=== PATIENT | female | born 1965 | race Caucasian/White ===

== ENCOUNTER 2021-04-16 17:05 | Inpatient (IN) ==
[2021-04-16] MEDS ORDERED: IOPAMIDOL 100 ML BOTTLE IV ONE (17:06)
[2021-04-16] MEDS ORDERED: DEXAMETHASONE 10 MG/ML VIAL IV ONE (17:21)
[2021-04-16] MEDS ORDERED: ALBUTEROL SULFATE 2.5 MG/3 ML NEBULIZER NEB ONE (17:21)
[2021-04-16] MEDS ORDERED: 0.9 % SODIUM CHLORIDE 1,000 ML IV ONE ×2 (17:21→18:03)
[2021-04-16] MEDS ORDERED: ONDANSETRON 4 MG/2 ML VIAL IV ONE (17:23)
--- NOTE | 2021-04-16 17:27 | Emergency Department Note ---
SOB HPI General Chief Complaint: Shortness of Breath/Dyspnea Stated Complaint: shortness of breath Time Seen by Provider: 04/16/21 17:12 Source: patient Mode of arrival: ambulatory Limitations: no limitations History of Present Illness HPI Narrative: The patient presents short of breath and hypoxic. She was diagnosed with Covid 11 days ago. She states that 5 days ago she started to feel worse. She has a productive cough and feels short of breath. She has a general malaise. She has had numerous episodes of vomiting and diarrhea. She denies chest pain. She has had a mild throbbing headache. She denies sore throat. She denies urinary issues. She denies any known cardiopulmonary problems. Related Data Previous Rx's Medication Instructions Recorded promethazine 25 mg tablet 25 mg PO Q6H PRN #30 tab 03/14/18 escitalopram oxalate 10 mg tablet 15 mg PO QHS 90 Days #135 tab 12/12/20 hydrocodone 10 mg-acetaminophen 1 tab PO Q6H PRN #25 tab 03/24/21 325 mg tablet ondansetron 4 mg PO Q6H PRN #12 tab 04/16/21 Allergies Allergy/AdvReac Type Severity Reaction Status Date / Time ketorolac [From Toradol] Allergy Unknown Unknown Verified 08/14/20 09:14 Penicillins Allergy Unknown Unknown Verified 08/14/20 09:14 codeine AdvReac Itching Verified 08/14/20 09:14 Review of Systems ROS ROS Narrative: Narrative: All systems ED: reviewed and negative except as stated. PFSH Narrative Patient History Narrative: Narrative: Medical/Surgical/Family History All Active Problems (Updated 04/16/21 @ 18:59 by Randy Mendosa MD) Pneumonia due to COVID-19 virus (Acute) Hypoxia (Acute) Hyperparathyroidism (Acute) Fatigue (Acute) Depression (Acute) Annual physical exam (Acute) Exposure to COVID-19 virus (Acute) History of colonoscopy (Acute 04/24/13) History of tubal ligation (Acute) Migraine (Acute) Insomnia (Acute 12/12/14) Chronic fatigue syndrome (Acute) Medical History (Updated 04/16/21 @ 18:59 by Randy Mendosa MD) Annual physical exam Chronic fatigue syndrome CMV-EB Depression Fatigue Hyperparathyroidism Insomnia (12/12/14) Migraine Surgical History (Updated 11/11/16 @ 14:23 by [employer] [place]) History of colonoscopy (04/24/13) Hyperplastic Polyp History of tubal ligation Family History (Updated 01/01/15 @ 13:54 by Anabella Paniagua) Aunt Malignant neoplasm of breast Grandmother(maternal) Malignant neoplasm of breast Social History Smoking Status: Former smoker Alcohol Intake Frequency: does not drink Substance Use: does not use Exam Narrative Narrative: Narrative: General Limitations: no limitations General appearance: Present alert and in no apparent distress (The patient can speak in multiple word sentences) Head Head: Present atraumatic and normal inspection Eye Eye: Present normal appearance ENT ENT: Present mucous membranes dry Neck Neck: Present normal inspection, full ROM and trachea midline; Absent meningismus Chest Chest: Present normal inspection and symmetric chest wall rise Respiratory Respiratory: Present wheezes (Mild expiratory); Absent normal lung sounds bilaterally, respiratory distress and accessory muscle use Cardiovascular Cardiovascular: Present regular rate, normal rhythm and other (Bilateral radial 2+) Adbominal Abdominal: Present soft; Absent distention and tenderness Extremities Extremities: Present normal inspection and full ROM; Absent pedal edema and calf tenderness Back Back: Present full ROM Neurological Neurological: Present alert and oriented X3 Psychiatric Psychiatric: Present normal affect and normal mood Skin Skin: Present warm (WNL) and dry Course Reevaluation(s) Reevaluation #1: The patient's work-up is reviewed. CT shows Covid pneumonia but no PE. Patient does show a prerenal azotemia. She is getting 2 L of fluid here. Her troponin is negative. Given the lack of beds in this facility and the surrounding facilities, I think a discharge with home oxygen would be the best option. Plan to see if this is a viable option for this evening. Time: 19:14 Reevaluation #2: We have been able to arrange for home oxygen for this patient. Time: 20:23 Reevaluation #3: Unfortunately, due to the time of day, the home oxygen will not be available for the patient until tomorrow morning. She will remain in the emergency department overnight on our oxygen until we can ensure that she has oxygen at home. Time: 22:52 Additional Reevaluation(s): 0110 -the patient became more hypoxic after getting up and using the restroom. She required a prolonged period of time on higher flow oxygen to regain her saturations. Based on this, we are going to try to find an inpatient bed for this patient. 0320 -we were informed by our manager warehouse that we would have a bed available come the morning after discharges. Plan at this point since there are no available beds in the area, is to keep the patient here in the ED and signed them over to dayshift at which point once a bed becomes available, they can consult our hospitalist. Consultations Consultation #1: Reportedly [facility] had a bed and so I spoke to their hospitalist, Dr. Payton Hull. She told me that she had already had 6 admissions this evening and was too busy to accept the patient. She declined to accept. Time: 03:00 Vital Signs Vital signs: Vital Signs Temperature 98.9 F 04/16/21 17:05 Pulse Rate 99 H 04/16/21 17:05 Respiratory Rate 25 H 04/16/21 17:05 Blood Pressure 111/74 04/16/21 17:05 Pulse Oximetry (%) 83 L 04/16/21 17:05 Temperature 97.8 F 04/17/21 06:11 Pulse Rate 92 H 04/17/21 06:11 Respiratory Rate 23 H 04/17/21 06:11 Blood Pressure 150/97 04/17/21 05:30 Pulse Oximetry (%) 90 04/17/21 06:11 [facility] MDM Narrative Medical decision making narrative: Narrative: The patient presents hypoxic with Covid. She does fine with the supplemental oxygen. Plan to give albuterol and dexamethasone. We will obtain a CT to rule out pulmonary embolism. We will also obtain other appropriate labs. I have low suspicion for ACS. If work-up is otherwise negative, it may be possible that we can arrange home O2 for this patient. If not, she will need to be either admitted or transferred depending on bed availability. Lab Data Result diagrams: 04/16/21 17:54 04/16/21 17:54 Labs: Lab Results 04/16/21 04/16/21 04/16/21 Range/Units 17:54 17:54 17:54 WBC 7.7 (4.5-11.0) K/mcL RBC 4.16 (3.59-5.38) M/mcL Hgb 11.4 (11.2-15.7) g/dL Hct 36.2 (34.1-44.9) % MCV 87.0 (80.0-100.0) fL MCH 27.4 (26.0-34.0) pg MCHC 31.5 (31.0-36.0) g/dL RDW 16.4 H (11.5-14.5) % Plt Count 218 (140-440) K/mcL MPV 11.1 H (7.4-10.4) fL Neut % (Auto) 86.0 H (38.0-78.0) % Lymph % (Auto) 10.8 L (15.5-49.0) % [place] % (Auto) 3.1 (1.0-12.0) % Eos % (Auto) 0 (0.0-7.0) % Baso % (Auto) 0.1 (0.0-2.0) % Lymph # (Auto) 0.83 L (1.50-4.80) K/mcL [place] # (Auto) 0.24 (0.10-0.90) K/mcL Eos # (Auto) 0 (0.00-0.70) K/mcL Baso # (Auto) 0.01 (0.00-0.30) K/mcL Absolute Neutrophils 6.61 (1.80-8.00) K/mcL Sodium 140 (133-145) mmol/L Potassium 3.8 (3.3-5.1) mmol/L Chloride 105 (96-108) mmol/L Carbon Dioxide 17 L (22-30) mmol/L Anion Gap 18.0 H (8.0-16.0) BUN 25 H (6-20) mg/dL Creatinine 1.5 H (0.6-1.1) mg/dL POC Creatinine 1.7 H (0.6-1.2) mg/dL GFR Calculation 38 Glucose 96 (70-105) mg/dL Calcium 9.1 (8.6-10.4) mg/dL Total Bilirubin 0.2 (0.1-1.0) mg/dL AST 31 (<32) U/L ALT 16 (<40) U/L Alkaline Phosphatase 128 H (39-117) U/L Troponin T < 0.01 (<0.03) ng/mL NT-Pro-B Natriuret Pep 143.1 H (<125.0) pg/mL Total Protein 7.5 (5.9-8.4) gm/dL Albumin 3.8 (3.2-5.2) gm/dL Globulin 3.7 (2.2-3.7) gm/dL Albumin/Globulin Ratio 1.0 (1.0-2.3) EKG Data EKG #1: EKG attestation: Yes I reviewed and interpreted this EKG. and Yes There are no EKG findings of acute coronary syndrome EKG results narrative: Sinus, rate 102, normal axis, QTC 535, MO 134, narrow complex QRS, no acute ST or T changes concerning for acute infarction CC TIME Critical Care Time Critical Care Time: Yes Total Critical Care Time: 185 Discharge Plan Patient/Caregiver Discharge Instructions Pt seen by PROVIDER CONTRACTING CONSULTANT/PA only: No Clinical Impression: Pneumonia due to COVID-19 virus, Hypoxia Patient Disposition: Still a Patient Condition: Fair Follow up with: Sameer Benitez MD [Primary Care Provider] - Prescriptions: New ondansetron 4 mg tablet,disintegrating 4 mg PO Q6H PRN (Reason: nausea and vomiting) Qty: 12 RF: 0 No Action promethazine 25 mg tablet 25 mg PO Q6H PRN (Reason: nausea and vomiting) Qty: 30 RF: 0 escitalopram oxalate [Lexapro] 10 mg tablet 15 mg PO QHS 90 Days Qty: 135 RF: 1 hydrocodone-acetaminophen 10-325 mg tablet 1 tab PO Q6H PRN (Reason: pain) Qty: 25 RF: 0
[2021-04-16 17:58] LABS: POC Creatinine 1.7 mg/dL (0.6-1.2)
--- NOTE | 2021-04-16 18:19 | Cat Scan Report ---
CLINICAL INFORMATION: Hypoxia. History of Covid positivity COMPARISON: None. TECHNIQUE: 80ml of Isovue-370 were injected intravenously. Using SmartPrep to maximize pulmonary artery opacification, .625mm helical slices were obtained from the lung apices through the lung bases. Following reconstruction, 2.5 mm sagittal, coronal, and axial reformations were processed. The exam was reviewed at mediastinal, lung, and bone windows. The exam was performed using radiation dose optimization techniques including, but not limited to, automated exposure control, adjustment of the mA and/or kV according to patient size and use of iterative reconstruction technique. FINDINGS: Pulmonary parenchymal windows show large patchy alveolar infiltrates throughout both lower lobes with moderate patchy groundglass infiltrates in the periphery of the right middle and both upper lobes. Pleural spaces are unremarkable-no effusions. Mediastinal windows show the heart is grossly normal in size and configuration. The pulmonary arteries are normal diameter and well-opacified without evidence of embolus. Thoracic aorta is also normal diameter and well-opacified. There is no adenopathy in the mediastinal, hilar or axillary regions. Esophagus is grossly normal. The thyroid is unremarkable. Bones and soft tissues the chest wall are normal. Images through the superior abdomen are unremarkable. IMPRESSION: Large patchy alveolar infiltrates throughout both lower lobes with moderate vague groundglass infiltrates at the peripheral right middle and upper lobes. Findings supportive of Covid pneumonia. Aspiration could also have similar appearance Interpreted and Authenticated by: Samuel Yao 04/16/21
[2021-04-16 18:34] LABS: Basophils # (Auto) 0.01 K/mcL (0.00-0.30); Basophils % (Auto) 0.1 % (0.0-2.0); Eosinophils # (Auto) 0 K/mcL (0.00-0.70); Eosinophils % (Auto) 0 % (0.0-7.0); Hematocrit 36.2 % (34.1-44.9); Hemoglobin 11.4 g/dL (11.2-15.7); Lymphocytes # (Auto) 0.83 K/mcL (1.50-4.80); Lymphocytes % (Auto) 10.8 % (15.5-49.0); Mean Corpuscular HGB Conc 31.5 g/dL (31.0-36.0); Mean Platelet Volume 11.1 fL (7.4-10.4); Monocytes # (Auto) 0.24 K/mcL (0.10-0.90); Monocytes % (Auto) 3.1 % (1.0-12.0); Platelet Count 218 K/mcL (140-440); RBC 4.16 M/mcL (3.59-5.38); Red Cell Distribution Width 16.4 % (11.5-14.5); WBC 7.7 K/mcL (4.5-11.0)
[2021-04-16 19:08] LABS: proBNP 143.1 pg/mL (<125.0)
[2021-04-16 19:10] LABS: ALT/SGPT 16 U/L (<40); AST/SGOT 31 U/L (<32); Albumin 3.8 gm/dL (3.2-5.2); Alkaline Phosphatase 128 U/L (39-117); Bilirubin,Total 0.2 mg/dL (0.1-1.0); Blood Urea Nitrogen 25 mg/dL (6-20); Calcium 9.1 mg/dL (8.6-10.4); Carbon Dioxide 17 mmol/L (22-30); Chloride 105 mmol/L (96-108); Globulin 3.7 gm/dL (2.2-3.7); Glomerular Filtration Rate 38; Glucose 96 mg/dL (70-105)
[2021-04-16] MEDS ORDERED: ACETAMINOPHEN 325 MG TABLET PO ONE (21:57)
[2021-04-17] MEDS ORDERED: IBUPROFEN 600 MG TABLET PO ONE (01:01)
[2021-04-17] MEDS ORDERED: REMDESIVIR 200 MG in 0.9 % SODIUM CHLORIDE 250 ML IV ONE (03:33)
--- NOTE | 2021-04-17 08:59 | EKG ---
[facility] Test Date: 2021-04-16 Pat Name: Juileth Wyatt Department: ED Room: Gender: Female Reimbursement Consultant: : 1965 Requested By: Randy Mendosa Order Number: [id number] Reading MD: Samuel Ibarra M.D. Measurements Intervals Mitchell Rate: 102 P: 41 NC: 134 QRS: 45 QRSD: 55 T: QT: 410 QTc: 535 Interpretive Statements Sinus tachycardia Low voltage, precordial leads Borderline abnrm T, anterolateral leads Electronically Signed On 04-17-2021 8:59:36 PDT by Samuel Ibarra M.D. /store/M0/[id number]
--- NOTE | 2021-04-17 09:31 | Internal Med History&Physical ---
HPI History of Present Illness Patient information: Note initiated : 04/17/21 at 9:27 am Service Date, if different from initiated Date: [] Patient: Julieth Wyatt a 56 y/o F admitted on for shortness of breath. Chief Complaint: [] History of present illness: Ms. Wyatt is a 56 year old F Presents ED with increased cough shortness of breath. She was diagnosed with Covid a week and half ago. Over the last few days patient's had increased short ness of breath and coughing. Cough is mostly dry. When she first arrived she was satting low 80s on room air. CTA showed no PE but did show large patchy alveolar infiltrates bilateral lobes. Chemistry shows acute kidney injury. She is currently on oxygen mask at 10-12 L. She reports headache fever chills nausea vomiting diarrhea. Patient has not been vaccinated but was in the process of setting up an appointment to get the vaccine. Review of Systems: Pertinent positives as above. Denies chest pain. Remaining 10 point review of system reviewed negative. PFSH PFSH All Active Problems (Updated 04/16/21 @ 18:59 by Randy Mendosa MD) Pneumonia due to COVID-19 virus (Acute) Hypoxia (Acute) Hyperparathyroidism (Acute) Fatigue (Acute) Depression (Acute) Annual physical exam (Acute) Exposure to COVID-19 virus (Acute) History of colonoscopy (Acute 04/24/13) History of tubal ligation (Acute) Migraine (Acute) Insomnia (Acute 12/12/14) Chronic fatigue syndrome (Acute) Medical History (Updated 04/16/21 @ 18:59 by Randy Mendosa MD) Annual physical exam Chronic fatigue syndrome CMV-EB Depression Fatigue Hyperparathyroidism Insomnia (12/12/14) Migraine Surgical History (Updated 11/11/16 @ 14:23 by [employer] [place]) History of colonoscopy (04/24/13) Hyperplastic Polyp History of tubal ligation Family History (Updated 01/01/15 @ 13:54 by Anabella Paniagua) Aunt Malignant neoplasm of breast Grandmother(maternal) Malignant neoplasm of breast Social History (Updated 08/13/19 @ 08:36 by Sameer Benitez MD) adopted: Yes marital status: education level: high school occupational status: unemployed other: 3 children and 3 gradchildren alcohol intake frequency: does not drink substance use type: does not use MEDS/ALLERGIES Home Medications and Allergies Home Medications Medication Instructions Recorded Confirmed Type promethazine 25 mg tablet 25 mg PO Q6H PRN #30 tab 03/14/18 08/14/20 Rx escitalopram oxalate 10 mg tablet 15 mg PO QHS 90 Days #135 tab 12/12/20 Rx hydrocodone 10 mg-acetaminophen 1 tab PO Q6H PRN #25 tab 03/24/21 Rx 325 mg tablet ondansetron 4 mg PO Q6H PRN #12 tab 04/16/21 Rx Allergies Allergy/AdvReac Type Severity Reaction Status Date / Time ketorolac [From Toradol] Allergy Unknown Unknown Verified 08/14/20 09:14 Penicillins Allergy Unknown Unknown Verified 08/14/20 09:14 codeine AdvReac Itching Verified 08/14/20 09:14 EXAM Constitutional Vitals: Temp Pulse Resp BP Pulse Ox 97.8 F 88 23 H 141/98 96 04/17/21 06:11 04/17/21 09:14 04/17/21 09:14 04/17/21 09:14 04/17/21 09:14 Exam: General: Alert, Awake, No acute Distress, obese Eyes/N/T: EOMI, PERRL, Head/Neck: neck supple, normocephalic atraumatic CV: RRR, No murmurs, normal s1/s2 Pulm: mild Rhonchi b/l, no wheezing Abd: soft, nontender, +BS x4 Ext: no clubbing/cyanosis/edema Neuro: Alert, no focal deficits, moves all extremities, CN 2-12 grossly intact, symmetrical strength b/l upper/lower, sensations intact b/l upper/lower Skin: warm/dry DATA Data Completed and Pending Labs: Labs from last 24 hours 04/16/21 04/16/21 04/16/21 17:54 17:54 17:54 WBC 7.7 RBC 4.16 Hgb 11.4 Hct 36.2 MCV 87.0 MCH 27.4 MCHC 31.5 RDW 16.4 H Plt Count 218 MPV 11.1 H Neut % (Auto) 86.0 H Lymph % (Auto) 10.8 L [place] % (Auto) 3.1 Eos % (Auto) 0 Baso % (Auto) 0.1 Lymph # (Auto) 0.83 L [place] # (Auto) 0.24 Eos # (Auto) 0 Baso # (Auto) 0.01 Absolute Neutrophils 6.61 Sodium 140 Potassium 3.8 Chloride 105 Carbon Dioxide 17 L Anion Gap 18.0 H BUN 25 H Creatinine 1.5 H POC Creatinine 1.7 H GFR Calculation 38 Glucose 96 Calcium 9.1 Total Bilirubin 0.2 AST 31 ALT 16 Alkaline Phosphatase 128 H Troponin T < 0.01 NT-Pro-B Natriuret Pep 143.1 H Total Protein 7.5 Albumin 3.8 Globulin 3.7 Albumin/Globulin Ratio 1.0 A/P Narrative A/P Narrative: A: *Covid pneumonia w/ARDS: *Acute hypoxic respite failure: -on 12L oxymask *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
--- NOTE | 2021-04-17 09:34 | Emergency Department Note ---
ED Note Addendum Note Addendum: Assumed patient care at 07:00 hrs. Patient is hemodynamically stable on O2. Discussed patient with hospitalist who graciously agreed to admission patient be admitted for further care instructions per Dr. Webb.
[2021-04-17] MEDS ORDERED: ONDANSETRON 4 MG/2 ML VIAL IV ONE (09:48)
[2021-04-17 11:13] LABS: C-Reactive Protein 17.2 mg/dL (0.03-0.80)
[2021-04-17 11:41] LABS: Ferritin 982.2 ng/mL (13.0-150.0)
[2021-04-17] MEDS ORDERED: METOCLOPRAMIDE 10 MG/2 ML VIAL IV PRN (12:15)
[2021-04-17] MEDS ORDERED: MAGNESIUM SULFATE 2 GM/50 ML BAG IV PRN (12:15)
[2021-04-17] MEDS ORDERED: POTASSIUM CHLORIDE 40 MEQ in DEXTROSE 5% IN WATER 500 ML IV PRN (12:15)
[2021-04-17] MEDS ORDERED: IPRATROPIUM/ALBUTEROL 3 ML AMPUL.NEB NEB PRN (12:15)
[2021-04-17] MEDS ORDERED: POTASSIUM CHLORIDE 20 MEQ TABLET PO PRN ×2 (12:15)
[2021-04-17] MEDS ORDERED: POLYETHYLENE GLYCOL 3350 17 GM PACKET PO PRN (12:15)
[2021-04-17] MEDS ORDERED: TOCILIZUMAB 700 MG in 0.9 % SODIUM CHLORIDE 65 ML IV ONE (13:00)
[2021-04-17] MEDS ORDERED: cefTRIAXone 2 GM in DEXTROSE 5% IN WATER 50 ML IV SCH (13:30)
[2021-04-17] MEDS: cefTRIAXone 2 GM in DEXTROSE 5% IN WATER 50 ML IV SCH (13:37)
[2021-04-17] MEDS: 0.9 % SODIUM CHLORIDE 10 ML SYRINGE IV SCH ×2 (14:12→20:22)
[2021-04-17] MEDS: ZINC SULFATE 50 MG CAPSULE PO SCH (14:22)
[2021-04-17] MEDS: guaiFENesin/CODEINE 10 ML UDC PO PRN ×2 (14:22→18:37)
[2021-04-17] MEDS: AZITHROMYCIN 500 MG in DEXTROSE 5% IN WATER 250 ML IV SCH (14:22)
[2021-04-17] MEDS: ENOXAPARIN 40 MG/0.4 ML SYRINGE SQ SCH (20:21)
[2021-04-18] MEDS: ACETAMINOPHEN 325 MG TABLET PO PRN ×3 (00:14→19:01)
[2021-04-18] MEDS: ONDANSETRON 4 MG/2 ML VIAL IV PRN (00:20)
[2021-04-18] MEDS: guaiFENesin/CODEINE 10 ML UDC PO PRN ×2 (05:18→10:10)
[2021-04-18] MEDS: 0.9 % SODIUM CHLORIDE 10 ML SYRINGE IV SCH ×3 (05:24→20:49)
[2021-04-18 07:48] LABS: Basophils # (Auto) 0.01 K/mcL (0.00-0.30); Basophils % (Auto) 0.2 % (0.0-2.0); Eosinophils # (Auto) 0 K/mcL (0.00-0.70); Eosinophils % (Auto) 0 % (0.0-7.0); Hematocrit 36.3 % (34.1-44.9); Lymphocytes # (Auto) 1.02 K/mcL (1.50-4.80); Mean Corpuscular HGB Conc 30.3 g/dL (31.0-36.0); Mean Platelet Volume 10.6 fL (7.4-10.4); Monocytes # (Auto) 0.34 K/mcL (0.10-0.90); Monocytes % (Auto) 7.6 % (1.0-12.0); Neutrophils % (Auto) 69.3 % (38.0-78.0); Platelet Count 339 K/mcL (140-440); RBC 4.08 M/mcL (3.59-5.38); Red Cell Distribution Width 16.7 % (11.5-14.5); WBC 4.5 K/mcL (4.5-11.0)
--- NOTE | 2021-04-18 07:55 | Internal Med Progress Note ---
SUBJECTIVE Subjective Patient information: Note initiated : 04/18/21 at 7:51 am Service Date, if different from initiated Date: [] Patient: Julieth Wyatt a 56 y/o F admitted on 04/17/21 for shortness of breath. Chief Complaint: [] Interval history: History of present illness: Ms. Wyatt is a 56 year old F Presents ED with increased cough shortness of breath. She was diagnosed with Covid a week and half ago. Over the last few days patient's had increased shortness of breath and coughing. Cough is mostly dry. When she first arrived she was satting low 80s on room air. CTA showed no PE but did show large patchy alveolar infiltrates bilateral lobes. Chemistry shows acute kidney injury. She is currently on oxygen mask at 10-12 L. She reports headache fever chills nausea vomiting diarrhea. Patient has not been vaccinated but was in the process of setting up an appointment to get the vaccine. 04/18 Patient continues to have cough mostly dry. Feels her shortness of breath is worse. Is on Vapotherm at 50 to 60 L/min with FiO2 92-100%. Instructed on proning today. Actemra yesterday. Reactant improved today. CRP improved today. Procalcitonin improving today. Does still have some diarrhea when she coughs. Review of Systems: denies headache/fever/chills/nausea/vomiting/chest or abdominal pain. Otherwise see above. Constitutional Vitals: Vital Signs Temp Pulse Resp BP Pulse Ox 98.2 F 85 17 123/85 92 04/18/21 04:00 04/18/21 07:21 04/18/21 06:00 04/18/21 06:00 04/18/21 07:21 Period Temp Pulse Resp BP Sys/Thao Pulse Ox Last 24 Hr 98.0 F-99.0 F 85-105 17-32 114-141/71-112 87-100 Intake and Output 04/17/21 04/18/21 04/18/21 21:59 05:59 13:59 Intake Total 400 200 Output Total 100 325 Balance 300 -125 Weight 84.187 kg Intake & Output: Intake & Output 04/17/21 04/18/21 04/18/21 21:59 05:59 13:59 Intake Total 400 200 Output Total 100 325 Balance 300 -125 Weight 84.187 kg Intake: IV 400 Zithromax 500 mg In Dextrose 5% 250 in Water 250 ml @ 250 mls/hr IV DAILY@1000 [facility] Rx#:[id number] Actemra 700 mg In Sodium 100 Chloride 0.9% 65 ml @ 100 mls/ hr IV ONCE ONE Rx#:[id number] Rocephin 2 gm In Dextrose 5% in 50 Water 50 ml @ 100 mls/hr IV DAILY@1100 [facility] Rx#:[id number] Oral 200 Output: Void Amount 100 175 Stool 150 Other: Urine Appearance Clear Clear Urine Color Dark Yellow Dark Yellow Urine Odor Normal Normal Stool Size Moderate Stool Color Brown Stool Consistency Liquid # Voids 1 # Bowel Movements 1 # of times incontinent of 2 Bowels Exam: General: Alert, Awake, No acute Distress, obese Eyes/N/T: EOMI, Head/Neck: neck supple, CV: RRR, No murmurs, Pulm: mild Rhonchi b/l, no wheezing Abd: soft, nontender, +BS x4 Ext: no clubbing/cyanosis/edema Neuro: Alert, no focal deficits, moves all extremities, Skin: warm/dry OBJ DATA Labs CBC & Chem 7: 04/18/21 05:47 04/18/21 05:47 Labs: Abnormal Lab Results 04/18/21 04/16/21 04/16/21 05:47 17:54 17:54 Hgb 11.0 L MCHC 30.3 L RDW 16.7 H 16.4 H MPV 10.6 H 11.1 H Neut % (Auto) 86.0 H Lymph % (Auto) 10.8 L Lymph # (Auto) 1.02 L 0.83 L Carbon Dioxide 17 L Anion Gap 18.0 H BUN 25 H Creatinine 1.5 H POC Creatinine 1.7 H Ferritin Alkaline Phosphatase 128 H C-Reactive Protein NT-Pro-B Natriuret Pep 143.1 H Procalcitonin 04/16/21 04/16/21 17:50 17:50 Hgb MCHC RDW MPV Neut % (Auto) Lymph % (Auto) Lymph # (Auto) Carbon Dioxide Anion Gap BUN Creatinine POC Creatinine Ferritin 982.2 H Alkaline Phosphatase C-Reactive Protein 17.20 H NT-Pro-B Natriuret Pep Procalcitonin 0.68 H Meds: Medications Acetaminophen (Acetaminophen 325 Mg Tablet) 650 mg PO Q6HP PRN; Protocol PRN Reason: Per Pain Protocol/Fever > 101 Last Admin: 04/18/21 00:14 Dose: 650 mg Documented by: Albuterol/Ipratropium (Ipratropium/Albuterol 3 Ml Ampul.Neb) 3 ml NEB Q4HP PRN PRN Reason: Shortness Of Breath Dexamethasone (Dexamethasone 4 Mg Tablet) 6 mg PO DAILY KIARA Enoxaparin Sodium (Enoxaparin 40 Mg/0.4 Ml Syringe) 40 mg SQ BID KIARA Last Admin: 04/17/21 20:21 Dose: 40 mg Documented by: Guaifenesin/Codeine Phosphate (Guaifenesin/Codeine 10 Ml Udc) 10 ml PO Q4HP PRN PRN Reason: Cough Last Admin: 04/18/21 05:18 Dose: 10 ml Documented by: Potassium Chloride 40 meq/ (Dextrose) 520 mls @ 130 mls/hr IV UD PRN PRN Reason: Potassium < 3 Magnesium Sulfate (Magnesium Sulfate) 2 gm in 50 mls @ 50 mls/hr IV UD PRN PRN Reason: Magnesium </= 1.6 REMDESIVIR 100 mg/ Sodium (Chloride) 250 mls @ 500 mls/hr IV DAILY KIARA Stop: 04/21/21 09:29 Azithromycin 500 mg/ Dextrose 250 mls @ 250 mls/hr IV DAILY@1000 KIARA; Protocol Stop: 04/19/21 10:59 Last Infusion: 04/17/21 15:31 Dose: Infused Documented by: Ceftriaxone Sodium 2 gm/ (Dextrose) 50 mls @ 100 mls/hr IV DAILY@1100 KIARA; Protocol Last Infusion: 04/17/21 14:36 Dose: Infused Documented by: Metoclopramide HCl (Metoclopramide 10 Mg/2 Ml Vial) 10 mg IV Q6HP PRN PRN Reason: Nausea And Vomiting Ondansetron HCl (Ondansetron 4 Mg/2 Ml Vial) 4 mg IV Q4HP PRN PRN Reason: Nausea And Vomiting Last Admin: 04/18/21 00:20 Dose: 4 mg Documented by: Polyethylene Glycol (Polyethylene Glycol 3350 17 Gm Packet) 17 gm PO DAILYP PRN PRN Reason: Constipation Potassium Chloride (Potassium Chloride 20 Meq Tablet) 40 meq PO UD PRN PRN Reason: Potssium is 3-3.5 Potassium Chloride (Potassium Chloride 20 Meq Tablet) 40 meq PO UD PRN PRN Reason: Potassium < 3 Sodium Chloride (0.9 % Sodium Chloride 10 Ml Syringe) 10 ml IV Q8 [facility] Last Admin: 04/18/21 05:24 Dose: 10 ml Documented by: Zinc Sulfate (Zinc Sulfate 50 Mg Capsule) 50 mg PO DAILY [facility] Last Admin: 04/17/21 14:22 Dose: 50 mg Documented by: A/P Narrative A/P Narrative: A: *Covid pneumonia w/ARDS & concern for bacterial coinfection: *Acute hypoxic respite failure: -on vapotherm 50lpm & 97% *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
[2021-04-18 08:03] LABS: ALT/SGPT 13 U/L (<40); AST/SGOT 25 U/L (<32); Albumin 3.4 gm/dL (3.2-5.2); Alkaline Phosphatase 105 U/L (39-117); Bilirubin,Direct < 0.2 mg/dL (0-0.3); Bilirubin,Total < 0.2 mg/dL (0.1-1.0); Blood Urea Nitrogen 19 mg/dL (6-20); Calcium 9.2 mg/dL (8.6-10.4); Carbon Dioxide 17 mmol/L (22-30); Chloride 104 mmol/L (96-108); Globulin 3.4 gm/dL (2.2-3.7); Glomerular Filtration Rate 82; Glucose 103 mg/dL (70-105); Lactate Dehydrogenase 452 U/L (135-225); Phosphorous 2.3 mg/dL (2.5-4.5); Triglycerides 198 mg/dL (<150); Uric Acid 3.3 mg/dL (2.5-8.0)
[2021-04-18 08:32] LABS: Lymphocytes % (Auto) 22.9 % (15.5-49.0)
[2021-04-18] MEDS: ENOXAPARIN 40 MG/0.4 ML SYRINGE SQ SCH ×2 (09:03→20:49)
[2021-04-18] MEDS: DEXAMETHASONE 4 MG TABLET PO SCH (09:03)
[2021-04-18] MEDS: ZINC SULFATE 50 MG CAPSULE PO SCH (09:04)
[2021-04-18] MEDS: REMDESIVIR 100 MG in 0.9 % SODIUM CHLORIDE 250 ML IV SCH (09:04)
[2021-04-18] MEDS: AZITHROMYCIN 500 MG in DEXTROSE 5% IN WATER 250 ML IV SCH (09:50)
[2021-04-18] MEDS ORDERED: BENZONATATE 100 MG CAPSULE PO ONE (10:12)
[2021-04-18] MEDS ORDERED: LOPERAMIDE 2 MG CAPSULE PO ONE (10:12)
[2021-04-18] MEDS: LORazepam 2 MG/ML VIAL IV PRN ×3 (10:49→19:01)
[2021-04-18] MEDS: cefTRIAXone 2 GM in DEXTROSE 5% IN WATER 50 ML IV SCH (10:49)
[2021-04-18] MEDS: BENZONATATE 100 MG CAPSULE PO PRN (13:53)
[2021-04-18] MEDS: LOPERAMIDE 2 MG CAPSULE PO PRN (19:00)
[2021-04-18] MEDS: MELATONIN 3 MG TABLET PO SCH (20:49)
[2021-04-19] MEDS: LORazepam 2 MG/ML VIAL IV PRN ×5 (02:05→20:05)
[2021-04-19] MEDS: LOPERAMIDE 2 MG CAPSULE PO PRN ×4 (04:20→20:05)
[2021-04-19] MEDS: 0.9 % SODIUM CHLORIDE 10 ML SYRINGE IV SCH ×3 (05:03→22:00)
[2021-04-19 07:50] LABS: ALT/SGPT 13 U/L (<40); AST/SGOT 18 U/L (<32); Albumin 3.3 gm/dL (3.2-5.2); Alkaline Phosphatase 93 U/L (39-117); Bilirubin,Direct < 0.2 mg/dL (0-0.3); Bilirubin,Total 0.2 mg/dL (0.1-1.0); Blood Urea Nitrogen 18 mg/dL (6-20); Carbon Dioxide 18 mmol/L (22-30); Chloride 106 mmol/L (96-108); Globulin 3.2 gm/dL (2.2-3.7); Glomerular Filtration Rate 101; Glucose 137 mg/dL (70-105); Lactate Dehydrogenase 403 U/L (135-225); Phosphorous 2.9 mg/dL (2.5-4.5); Triglycerides 185 mg/dL (<150)
--- NOTE | 2021-04-19 07:52 | Internal Med Progress Note ---
SUBJECTIVE Subjective Patient information: Note initiated : 04/19/21 at 7:50 am Service Date, if different from initiated Date: [] Patient: Julieth Wyatt a 56 y/o F admitted on 04/17/21 for shortness of breath. Chief Complaint: [] Interval history: History of present illness: Ms. Wyatt is a 56 year old F Presents ED with increased cough shortness of breath. She was diagnosed with Covid a week and half ago. Over the last few days patient's had increased shortness of breath and coughing. Cough is mostly dry. When she first arrived she was satting low 80s on room air. CTA showed no PE but did show large patchy alveolar infiltrates bilateral lobes. Chemistry shows acute kidney injury. She is currently on oxygen mask at 10-12 L. She reports headache fever chills nausea vomiting diarrhea. Patient has not been vaccinated but was in the process of setting up an appointment to get the vaccine. 04/18 Patient continues to have cough mostly dry. Feels her shortness of breath is worse. Is on Vapotherm at 50 to 60 L/min with FiO2 92-100%. Instructed on proning today. Actemra yesterday. Reactant improved today. CRP improved today. Procalcitonin improving today. Does still have some diarrhea when she coughs. 04/19 Patient with cough that is improved. She says her shortness of breath waxes and wanes but overall she feels better than yesterday. She is down to 60-65% FiO2. Review of Systems: denies headache/fever/chills/nausea/vomiting/chest or abdominal pain. Otherwise see above. Constitutional Vitals: Vital Signs Temp Pulse Resp BP Pulse Ox 97.7 F 74 28 H 111/71 92 04/19/21 02:01 04/19/21 05:00 04/19/21 05:00 04/19/21 04:01 04/19/21 05:00 Period Temp Pulse Resp BP Sys/Thao Pulse Ox Last 24 Hr 97.0 F-98.4 F 74-91 19-30 100-161/64-96 77-100 Intake and Output 04/18/21 04/19/21 04/19/21 21:59 05:59 13:59 Intake Total 240 475 Output Total 225 526 Balance 15 -51 Weight 84.595 kg Intake & Output: Intake & Output 04/18/21 04/19/21 04/19/21 21:59 05:59 13:59 Intake Total 240 475 Output Total 225 526 Balance 15 -51 Weight 84.595 kg Intake: Nourishment/Supplement quantity 125 (ml) Oral 240 350 Output: Void Amount 125 275 # of times incontinent of urine 1 Urine/Stool Mix 250 Stool 100 Other: Meal Nourishment/Supplement Percent of Meal Consumed 100% Nourishment/Supplement name ensure clear Urine Appearance Clear Urine Color Dark Yellow Urine Odor Normal Stool Size Small Small Stool Color Brown Brown Stool Consistency Liquid Liquid Watery # Voids 1 # Bowel Movements 2 # of times incontinent of 1 Bowels Exam: General: Alert, Awake, No acute Distress, obese Eyes/N/T: EOMI, Head/Neck: neck supple, CV: RRR, No murmurs, Pulm: mild Rhonchi b/l, no wheezing Abd: soft, nontender, +BS x4 Ext: no clubbing/cyanosis/edema Neuro: Alert, no focal deficits, moves all extremities, Skin: warm/dry OBJ DATA Labs CBC & Chem 7: 04/18/21 05:47 04/19/21 05:15 Labs: Abnormal Lab Results 04/18/21 04/18/21 04/18/21 05:48 05:47 05:47 Hgb 11.0 L MCHC 30.3 L RDW 16.7 H MPV 10.6 H Neut % (Auto) Lymph % (Auto) Lymph # (Auto) 1.02 L Carbon Dioxide 17 L Anion Gap BUN Creatinine POC Creatinine Phosphorus 2.3 L Ferritin GGT 211 H Alkaline Phosphatase Lactate Dehydrogenase 452 H C-Reactive Protein 5.50 H NT-Pro-B Natriuret Pep Triglycerides 198 H Procalcitonin 0.25 H 04/16/21 04/16/21 04/16/21 17:54 17:54 17:50 Hgb MCHC RDW 16.4 H MPV 11.1 H Neut % (Auto) 86.0 H Lymph % (Auto) 10.8 L Lymph # (Auto) 0.83 L Carbon Dioxide 17 L Anion Gap 18.0 H BUN 25 H Creatinine 1.5 H POC Creatinine 1.7 H Phosphorus Ferritin GGT Alkaline Phosphatase 128 H Lactate Dehydrogenase C-Reactive Protein NT-Pro-B Natriuret Pep 143.1 H Triglycerides Procalcitonin 0.68 H 04/16/21 17:50 Hgb MCHC RDW MPV Neut % (Auto) Lymph % (Auto) Lymph # (Auto) Carbon Dioxide Anion Gap BUN Creatinine POC Creatinine Phosphorus Ferritin 982.2 H GGT Alkaline Phosphatase Lactate Dehydrogenase C-Reactive Protein 17.20 H NT-Pro-B Natriuret Pep Triglycerides Procalcitonin Meds: Medications Acetaminophen (Acetaminophen 325 Mg Tablet) 650 mg PO Q6HP PRN; Protocol PRN Reason: Per Pain Protocol/Fever > 101 Last Admin: 04/18/21 19:01 Dose: 650 mg Documented by: Albuterol/Ipratropium (Ipratropium/Albuterol 3 Ml Ampul.Neb) 3 ml NEB Q4HP PRN PRN Reason: Shortness Of Breath Benzonatate (Benzonatate 100 Mg Capsule) 200 mg PO TIDP PRN PRN Reason: Cough Last Admin: 04/18/21 13:53 Dose: 200 mg Documented by: Dexamethasone (Dexamethasone 4 Mg Tablet) 6 mg PO DAILY [facility] Last Admin: 04/18/21 09:03 Dose: 6 mg Documented by: Enoxaparin Sodium (Enoxaparin 40 Mg/0.4 Ml Syringe) 40 mg SQ BID [facility] Last Admin: 04/18/21 20:49 Dose: 40 mg Documented by: Guaifenesin/Codeine Phosphate (Guaifenesin/Codeine 10 Ml Udc) 10 ml PO Q4HP PRN PRN Reason: Cough Last Admin: 04/18/21 10:10 Dose: 10 ml Documented by: Potassium Chloride 40 meq/ (Dextrose) 520 mls @ 130 mls/hr IV UD PRN PRN Reason: Potassium < 3 Magnesium Sulfate (Magnesium Sulfate) 2 gm in 50 mls @ 50 mls/hr IV UD PRN PRN Reason: Magnesium </= 1.6 REMDESIVIR 100 mg/ Sodium (Chloride) 250 mls @ 500 mls/hr IV DAILY [facility] Stop: 04/21/21 09:29 Last Infusion: 04/18/21 09:50 Dose: Infused Documented by: Azithromycin 500 mg/ Dextrose 250 mls @ 250 mls/hr IV DAILY@1000 [facility]; Protocol Stop: 04/19/21 10:59 Last Infusion: 04/18/21 10:49 Dose: Infused Documented by: Ceftriaxone Sodium 2 gm/ (Dextrose) 50 mls @ 100 mls/hr IV DAILY@1100 [facility]; Protocol Last Infusion: 04/18/21 11:20 Dose: Infused Documented by: Loperamide HCl (Loperamide 2 Mg Capsule) 2 mg PO PRN PRN PRN Reason: Diarrhea Last Admin: 04/19/21 04:20 Dose: 2 mg Documented by: Lorazepam (Lorazepam 2 Mg/Ml Vial) 0.5 mg IV Q4-6HP PRN PRN Reason: ANXIETY/SEDATION Last Admin: 04/19/21 07:06 Dose: 0.5 mg Documented by: Melatonin (Melatonin 3 Mg Tablet) 3 mg PO HS [facility] Last Admin: 04/18/21 20:49 Dose: 3 mg Documented by: Metoclopramide HCl (Metoclopramide 10 Mg/2 Ml Vial) 10 mg IV Q6HP PRN PRN Reason: Nausea And Vomiting Ondansetron HCl (Ondansetron 4 Mg/2 Ml Vial) 4 mg IV Q4HP PRN PRN Reason: Nausea And Vomiting Last Admin: 04/18/21 00:20 Dose: 4 mg Documented by: Polyethylene Glycol (Polyethylene Glycol 3350 17 Gm Packet) 17 gm PO DAILYP PRN PRN Reason: Constipation Potassium Chloride (Potassium Chloride 20 Meq Tablet) 40 meq PO UD PRN PRN Reason: Potssium is 3-3.5 Potassium Chloride (Potassium Chloride 20 Meq Tablet) 40 meq PO UD PRN PRN Reason: Potassium < 3 Sodium Chloride (0.9 % Sodium Chloride 10 Ml Syringe) 10 ml IV Q8 [facility] Last Admin: 04/19/21 05:03 Dose: 10 ml Documented by: Zinc Sulfate (Zinc Sulfate 50 Mg Capsule) 50 mg PO DAILY [facility] Last Admin: 04/18/21 09:04 Dose: 50 mg Documented by: A/P Narrative A/P Narrative: A: *Covid pneumonia w/ARDS & concern for bacterial coinfection: -inflammatory markers improving, PCT improving *Acute hypoxic respite failure: -on vapotherm 50lpm & 60% *TRIPP on CKD stage II: resolved *Depression: *Hyperparathyroidism: *Obese: *Diarrhea on admit: P: -Remdesivir/dexamethasone, s/p actemra -Empiric Abx -O2 supplementation, wean as able -Proning/mobilization/oob chair -IS/Acapella/prn nebs -s/p IVF in ED, prn diuresis - -ppx: lovenox code: full code Time Spent With Patient Time: Total time spent is greater than 50% in coordination of care (as documented) at patient's floor/unit and/or counseling patient: QUALITY VTE Deep Vein Thrombosis/Pulmonary Embolism Present on Admission: No
[2021-04-19 07:59] LABS: Ferritin 536.8 ng/mL (13.0-150.0)
[2021-04-19] MEDS ORDERED: FUROSEMIDE 20 MG/2 ML VIAL IV ONE (09:00)
[2021-04-19] MEDS: DEXAMETHASONE 4 MG TABLET PO SCH (09:02)
[2021-04-19] MEDS: REMDESIVIR 100 MG in 0.9 % SODIUM CHLORIDE 250 ML IV SCH (09:02)
[2021-04-19] MEDS: ZINC SULFATE 50 MG CAPSULE PO SCH (09:02)
[2021-04-19] MEDS: ACETAMINOPHEN 325 MG TABLET PO PRN ×2 (09:03→20:05)
[2021-04-19] MEDS: ENOXAPARIN 40 MG/0.4 ML SYRINGE SQ SCH ×2 (09:03→20:04)
[2021-04-19] MEDS: ONDANSETRON 4 MG/2 ML VIAL IV PRN ×2 (09:04→16:01)
[2021-04-19] MEDS: AZITHROMYCIN 500 MG in DEXTROSE 5% IN WATER 250 ML IV SCH (09:50)
[2021-04-19] MEDS: BENZONATATE 100 MG CAPSULE PO PRN ×2 (11:06→16:01)
[2021-04-19] MEDS: cefTRIAXone 2 GM in DEXTROSE 5% IN WATER 50 ML IV SCH (11:06)
[2021-04-19] MEDS: MELATONIN 3 MG TABLET PO SCH (20:05)
[2021-04-20] MEDS: LORazepam 2 MG/ML VIAL IV PRN ×5 (00:28→20:08)
[2021-04-20] MEDS: ACETAMINOPHEN 325 MG TABLET PO PRN ×3 (00:29→20:10)
[2021-04-20] MEDS: LOPERAMIDE 2 MG CAPSULE PO PRN ×3 (00:29→20:09)
[2021-04-20] MEDS: guaiFENesin/CODEINE 10 ML UDC PO PRN (00:30)
[2021-04-20] MEDS: 0.9 % SODIUM CHLORIDE 10 ML SYRINGE IV SCH ×3 (05:40→20:32)
--- NOTE | 2021-04-20 08:19 | Internal Med Progress Note ---
SUBJECTIVE Subjective Patient information: Note initiated : 04/20/21 at 8:17 am Service Date, if different from initiated Date: [] Patient: Julieth Wyatt a 56 y/o F admitted on 04/17/21 for shortness of breath. Chief Complaint: [] Interval history: History of present illness: Ms. Wyatt is a 56 year old F Presents ED with increased cough shortness of breath. She was diagnosed with Covid a week and half ago. Over the last few days patient's had increased shortness of breath and coughing. Cough is mostly dry. When she first arrived she was satting low 80s on room air. CTA showed no PE but did show large patchy alveolar infiltrates bilateral lobes. Chemistry shows acute kidney injury. She is currently on oxygen mask at 10-12 L. She reports headache fever chills nausea vomiting diarrhea. Patient has not been vaccinated but was in the process of setting up an appointment to get the vaccine. 04/18 Patient continues to have cough mostly dry. Feels her shortness of breath is worse. Is on Vapotherm at 50 to 60 L/min with FiO2 92-100%. Instructed on proning today. Actemra yesterday. Reactant improved today. CRP improved today. Procalcitonin improving today. Does still have some diarrhea when she coughs. 04/19 Patient with cough that is improved. She says her shortness of breath waxes and wanes but overall she feels better than yesterday. She is down to 60-65% FiO2. 04/20 Patient on 50 L/min 60% FiO2. She says she is breathing little bit better. Does have cough. Review of Systems: denies headache/fever/chills/nausea/vomiting/chest or abdominal pain. Otherwise see above. Constitutional Vitals: Vital Signs Temp Pulse Resp BP Pulse Ox 98.0 F 67 14 108/73 95 04/20/21 02:00 04/20/21 06:00 04/20/21 06:00 04/20/21 06:00 04/20/21 06:00 Period Temp Pulse Resp BP Sys/Thao Pulse Ox Last 24 Hr 97.4 F-98.2 F 64-87 - 99-126/60-92 83-99 Intake and Output 04/19/21 04/20/21 04/20/21 21:59 05:59 13:59 Intake Total 580 50 Output Total 775 200 Balance -195 -150 Weight 84.368 kg Intake & Output: Intake & Output 04/19/21 04/20/21 04/20/21 21:59 05:59 13:59 Intake Total 580 50 Output Total 775 200 Balance -195 -150 Weight 84.368 kg Intake: Nourishment/Supplement quantity 240 (ml) Oral 340 50 Output: Void Amount 675 200 Stool 100 Other: Meal Nourishment/Supplement Nourishment/Supplement name ensure vanilla Urine Appearance Clear Clear Urine Color Pale Bright Yellow Urine Odor Normal Normal Stool Size Small Small Stool Color Brown Brown Stool Consistency Liquid Liquid # Bowel Movements 1 1 1 # of times incontinent of 1 1 Bowels Exam: General: Alert, Awake, No acute Distress, obese Eyes/N/T: EOMI, Head/Neck: neck supple, CV: RRR, No murmurs, Pulm: minimal Rhonchi b/l clearing, no wheezing Abd: soft, nontender, +BS x4 Ext: no clubbing/cyanosis/edema Neuro: Alert, no focal deficits, moves all extremities, Skin: warm/dry OBJ DATA Labs CBC & Chem 7: 04/18/21 05:47 04/19/21 05:15 Labs: Abnormal Lab Results 04/19/21 04/19/21 04/19/21 05:15 05:15 05:15 Hgb MCHC RDW MPV Lymph # (Auto) Carbon Dioxide 18 L Glucose 137 H Phosphorus Ferritin 536.8 H GGT 192 H Lactate Dehydrogenase 403 H C-Reactive Protein 2.00 H Triglycerides 185 H Procalcitonin 0.12 H 04/18/21 04/18/21 04/18/21 05:48 05:47 05:47 Hgb 11.0 L MCHC 30.3 L RDW 16.7 H MPV 10.6 H Lymph # (Auto) 1.02 L Carbon Dioxide 17 L Glucose Phosphorus 2.3 L Ferritin GGT 211 H Lactate Dehydrogenase 452 H C-Reactive Protein 5.50 H Triglycerides 198 H Procalcitonin 0.25 H 04/16/21 04/16/21 17:50 17:50 Hgb MCHC RDW MPV Lymph # (Auto) Carbon Dioxide Glucose Phosphorus Ferritin 982.2 H GGT Lactate Dehydrogenase C-Reactive Protein 17.20 H Triglycerides Procalcitonin 0.68 H Meds: Medications Acetaminophen (Acetaminophen 325 Mg Tablet) 650 mg PO Q6HP PRN; Protocol PRN Reason: Per Pain Protocol/Fever > 101 Last Admin: 04/20/21 05:39 Dose: 650 mg Documented by: Albuterol/Ipratropium (Ipratropium/Albuterol 3 Ml Ampul.Neb) 3 ml NEB Q4HP PRN PRN Reason: Shortness Of Breath Benzonatate (Benzonatate 100 Mg Capsule) 200 mg PO TIDP PRN PRN Reason: Cough Last Admin: 04/19/21 16:01 Dose: 200 mg Documented by: Dexamethasone (Dexamethasone 4 Mg Tablet) 6 mg PO DAILY [facility] Last Admin: 04/19/21 09:02 Dose: 6 mg Documented by: Enoxaparin Sodium (Enoxaparin 40 Mg/0.4 Ml Syringe) 40 mg SQ BID [facility] Last Admin: 04/19/21 20:04 Dose: 40 mg Documented by: Guaifenesin/Codeine Phosphate (Guaifenesin/Codeine 10 Ml Udc) 10 ml PO Q4HP PRN PRN Reason: Cough Last Admin: 04/20/21 00:30 Dose: 10 ml Documented by: Potassium Chloride 40 meq/ (Dextrose) 520 mls @ 130 mls/hr IV UD PRN PRN Reason: Potassium < 3 Magnesium Sulfate (Magnesium Sulfate) 2 gm in 50 mls @ 50 mls/hr IV UD PRN PRN Reason: Magnesium </= 1.6 REMDESIVIR 100 mg/ Sodium (Chloride) 250 mls @ 500 mls/hr IV DAILY [facility] Stop: 04/21/21 09:29 Last Infusion: 04/19/21 09:36 Dose: Infused Documented by: Ceftriaxone Sodium 2 gm/ (Dextrose) 50 mls @ 100 mls/hr IV DAILY@1100 [facility]; Protocol Last Infusion: 04/19/21 11:40 Dose: Infused Documented by: Loperamide HCl (Loperamide 2 Mg Capsule) 2 mg PO PRN PRN PRN Reason: Diarrhea Last Admin: 04/20/21 05:39 Dose: 2 mg Documented by: Lorazepam (Lorazepam 2 Mg/Ml Vial) 0.5 mg IV Q4-6HP PRN PRN Reason: ANXIETY/SEDATION Last Admin: 04/20/21 05:39 Dose: 0.5 mg Documented by: Melatonin (Melatonin 3 Mg Tablet) 3 mg PO HS [facility] Last Admin: 04/19/21 20:05 Dose: 3 mg Documented by: Metoclopramide HCl (Metoclopramide 10 Mg/2 Ml Vial) 10 mg IV Q6HP PRN PRN Reason: Nausea And Vomiting Ondansetron HCl (Ondansetron 4 Mg/2 Ml Vial) 4 mg IV Q4HP PRN PRN Reason: Nausea And Vomiting Last Admin: 04/19/21 16:01 Dose: 4 mg Documented by: Polyethylene Glycol (Polyethylene Glycol 3350 17 Gm Packet) 17 gm PO DAILYP PRN PRN Reason: Constipation Potassium Chloride (Potassium Chloride 20 Meq Tablet) 40 meq PO UD PRN PRN Reason: Potssium is 3-3.5 Potassium Chloride (Potassium Chloride 20 Meq Tablet) 40 meq PO UD PRN PRN Reason: Potassium < 3 Sodium Chloride (0.9 % Sodium Chloride 10 Ml Syringe) 10 ml IV Q8 [facility] Last Admin: 04/20/21 05:40 Dose: 10 ml Documented by: Zinc Sulfate (Zinc Sulfate 50 Mg Capsule) 50 mg PO DAILY [facility] Last Admin: 04/19/21 09:02 Dose: 50 mg Documented by: A/P Narrative A/P Narrative: A: *Covid pneumonia w/ARDS & concern for bacterial coinfection: -inflammatory markers improving, PCT improving *Acute hypoxic respite failure: -on vapotherm 50lpm & 60% *TRIPP on CKD stage II: resolved *Depression: *Hyperparathyroidism: *Obese: *Diarrhea on admit: P: -Remdesivir/dexamethasone, s/p actemra -Empiric Abx -O2 supplementation, wean as able -Proning/mobilization/oob chair -IS/Acapella/prn nebs -s/p IVF in ED, prn diuresis -pt/ot when able -ppx: lovenox code: full code Time Spent With Patient Time: Total time spent is greater than 50% in coordination of care (as documented) at patient's floor/unit and/or counseling patient: QUALITY VTE Deep Vein Thrombosis/Pulmonary Embolism Present on Admission: No
[2021-04-20] MEDS: ENOXAPARIN 40 MG/0.4 ML SYRINGE SQ SCH ×2 (08:59→20:09)
[2021-04-20] MEDS: DEXAMETHASONE 4 MG TABLET PO SCH (08:59)
[2021-04-20] MEDS: BENZONATATE 100 MG CAPSULE PO PRN ×2 (09:00→20:09)
[2021-04-20] MEDS: ZINC SULFATE 50 MG CAPSULE PO SCH (09:00)
[2021-04-20 09:53] LABS: ALT/SGPT 12 U/L (<40); AST/SGOT 16 U/L (<32); Albumin 3.1 gm/dL (3.2-5.2); Alkaline Phosphatase 78 U/L (39-117); Bilirubin,Direct < 0.2 mg/dL (0-0.3); Bilirubin,Total 0.2 mg/dL (0.1-1.0); Blood Urea Nitrogen 21 mg/dL (6-20); Calcium 8.9 mg/dL (8.6-10.4); Carbon Dioxide 20 mmol/L (22-30); Chloride 103 mmol/L (96-108); Globulin 3.1 gm/dL (2.2-3.7); Glomerular Filtration Rate 101; Glucose 109 mg/dL (70-105); Lactate Dehydrogenase 349 U/L (135-225); Phosphorous 2.7 mg/dL (2.5-4.5); Triglycerides 191 mg/dL (<150); Uric Acid 3.3 mg/dL (2.5-8.0)
[2021-04-20] MEDS: REMDESIVIR 100 MG in 0.9 % SODIUM CHLORIDE 250 ML IV SCH (10:32)
[2021-04-20] MEDS: cefTRIAXone 2 GM in DEXTROSE 5% IN WATER 50 ML IV SCH (11:21)
[2021-04-20] MEDS: ONDANSETRON 4 MG/2 ML VIAL IV PRN ×2 (11:42→17:31)
[2021-04-20] MEDS: MELATONIN 3 MG TABLET PO SCH (20:09)
[2021-04-21] MEDS: LORazepam 2 MG/ML VIAL IV PRN ×5 (00:05→21:53)
[2021-04-21] MEDS: 0.9 % SODIUM CHLORIDE 10 ML SYRINGE IV SCH ×3 (04:33→21:54)
[2021-04-21 08:37] LABS: ALT/SGPT 11 U/L (<40); AST/SGOT 12 U/L (<32); Albumin 3.4 gm/dL (3.2-5.2); Albumin/Globulin Ratio 1.2 (1.0-2.3); Alkaline Phosphatase 75 U/L (39-117); Bilirubin,Total 0.3 mg/dL (0.1-1.0); Blood Urea Nitrogen 18 mg/dL (6-20); Carbon Dioxide 23 mmol/L (22-30); Chloride 105 mmol/L (96-108); Globulin 2.8 gm/dL (2.2-3.7); Glomerular Filtration Rate 101; Glucose 97 mg/dL (70-105)
[2021-04-21 09:46] LABS: Basophils # (Auto) 0 K/mcL (0.00-0.30); Basophils % (Auto) 0 % (0.0-2.0); Eosinophils # (Auto) 0 K/mcL (0.00-0.70); Eosinophils % (Auto) 0 % (0.0-7.0); Hematocrit 36.6 % (34.1-44.9); Hemoglobin 11.6 g/dL (11.2-15.7); Lymphocytes # (Auto) 1.23 K/mcL (1.50-4.80); Lymphocytes % (Auto) 22.6 % (15.5-49.0); Mean Cell Volume 86.7 fL (80.0-100.0); Mean Corpuscular HGB Conc 31.7 g/dL (31.0-36.0); Mean Platelet Volume 10.2 fL (7.4-10.4); Monocytes # (Auto) 0.44 K/mcL (0.10-0.90); Monocytes % (Auto) 8.1 % (1.0-12.0); Neutrophils % (Auto) 69.3 % (38.0-78.0); Platelet Count 367 K/mcL (140-440); RBC 4.22 M/mcL (3.59-5.38); Red Cell Distribution Width 15.3 % (11.5-14.5); WBC 5.5 K/mcL (4.5-11.0)
--- NOTE | 2021-04-21 09:52 | XRay Report ---
HISTORY: Follow-up COVID pneumonia, short of breath FINDINGS: There are mild to moderate generalized alveolar infiltrates in both lungs. There are also a few peripheral linear opacities which may be discoid atelectasis or evolving bands of scar tissue. The pneumonia has improved since a prior chest CT done on 04/16/21. No pleural effusion is present. The heart size is normal. There are clips in the region of the right lobe of the thyroid. IMPRESSION: improving pneumonia with evolving band of discoid atelectasis or scar, best seen in the left upper lobe Interpreted and Authenticated by: Nathan Ibarra 04/21/21
[2021-04-21] MEDS: ENOXAPARIN 40 MG/0.4 ML SYRINGE SQ SCH ×2 (10:42→21:53)
[2021-04-21] MEDS: DEXAMETHASONE 4 MG TABLET PO SCH (10:42)
[2021-04-21] MEDS: REMDESIVIR 100 MG in 0.9 % SODIUM CHLORIDE 250 ML IV SCH (10:42)
[2021-04-21] MEDS: ZINC SULFATE 50 MG CAPSULE PO SCH (10:42)
--- NOTE | 2021-04-21 10:42 | Internal Med Progress Note ---
SUBJECTIVE Subjective Patient information: Note initiated : 04/21/21 at 10:36 am Service Date, if different from initiated Date: [] Patient: Julieth Wyatt a 56 y/o F admitted on 04/17/21 for shortness of breath. Chief Complaint: [CoVID pneumonia] Interval history: History of present illness: Ms. Wyatt is a 56 year old F Presents ED with increased cough shortness of breath. She was diagnosed with Covid a week and half ago. Over the last few days patient's had increased shortness of breath and coughing. Cough is mostly dry. When she first arrived she was satting low 80s on room air. CTA showed no PE but did show large patchy alveolar infiltrates bilateral lobes. Chemistry shows acute kidney injury. She is currently on oxygen mask at 10-12 L. She reports headache fever chills nausea vomiting diarrhea. Patient has not been vaccinated but was in the process of setting up an appointment to get the vaccine. 04/18 Patient continues to have cough mostly dry. Feels her shortness of breath is worse. Is on Vapotherm at 50 to 60 L/min with FiO2 92-100%. Instructed on proning today. Actemra yesterday. Reactant improved today. CRP improved today. Procalcitonin improving today. Does still have some diarrhea when she coughs. 04/19 Patient with cough that is improved. She says her shortness of breath waxes and wanes but overall she feels better than yesterday. She is down to 60-65% FiO2. 04/20 Patient on 50 L/min 60% FiO2. She says she is breathing little bit better. Does have cough. 04/21: Afebrile. Been partial prone. Oxygen requirement 40L/min, FiO2 40%. c/o general body weakness. c/o SOB. c/o nonproductive cough. Denies fever or chills. Denies chest pain or tightness. c/o anxiety. Constitutional Vitals: Vital Signs Temp Pulse Resp BP Pulse Ox 36.3 C 74 16 122/78 99 04/21/21 08:01 04/21/21 10:01 04/21/21 10:01 04/21/21 10:01 04/21/21 10:01 Period Temp Pulse Resp BP Sys/Thao Pulse Ox Last 24 Hr 36.1 C-36.8 C 57-88 12- 103-126/65-88 90-99 Intake and Output 04/20/21 04/21/21 04/21/21 21:59 05:59 13:59 Intake Total 200 880 Output Total 200 1 250 Balance 0 879 -250 Weight 84.368 kg Intake & Output: Intake & Output 04/20/21 04/21/21 04/21/21 21:59 05:59 13:59 Intake Total 200 880 Output Total 200 1 250 Balance 0 879 -250 Weight 84.368 kg Intake: Oral 200 880 Output: # of times incontinent of urine 1 Urine/Stool Mix 200 250 Other: Stool Size Smear Small Small Stool Color Brown Brown Stool Consistency Liquid Loose # Bowel Movements 1 1 General appearance: cooperative, disheveled and no acute distress Head Head exam: Present atraumatic and normocephalic Eye Eye exam: Present EOMI and PERRL ENT ENT exam: Present mucous membranes moist, normal exam and normal external ear exam Additional comments: High flow oxygen in place Neck Neck exam: Present normal inspection; Absent lymphadenopathy, tenderness and thyromegaly Respiratory Respiratory exam: Present rhonchi; Absent accessory muscle use, respiratory distress and wheezes Cardiovascular Cardiovascular exam: Present normal rate and rhythm; Absent JVD GI/Abdominal GI/Abdominal exam: Present normal bowel sounds and soft; Absent organomegaly and tenderness Extremities Exam Extremities exam: Present full ROM, normal capillary refill and normal in spection; Absent tenderness Neurological Exam Neurological exam: Present alert, CN II-XII intact and oriented X3; Absent motor sensory deficit Psychiatric Psychiatric exam: Present normal affect and normal mood; Absent anxious and depressed Skin Skin exam: Present dry and intact OBJ DATA Labs CBC & Chem 7: 04/21/21 05:08 04/21/21 05:08 Labs: Abnormal Lab Results 04/21/21 04/20/21 04/19/21 05:08 07:35 05:15 RDW 15.3 H Lymph # (Auto) 1.23 L Carbon Dioxide 20 L BUN 21 H Glucose 109 H Ferritin 536.8 H GGT 160 H Lactate Dehydrogenase 349 H C-Reactive Protein Albumin 3.1 L Triglycerides 191 H Procalcitonin 04/19/21 04/19/21 05:15 05:15 RDW Lymph # (Auto) Carbon Dioxide 18 L BUN Glucose 137 H Ferritin GGT 192 H Lactate Dehydrogenase 403 H C-Reactive Protein 2.00 H Albumin Triglycerides 185 H Procalcitonin 0.12 H Meds: Medications Acetaminophen (Acetaminophen 325 Mg Tablet) 650 mg PO Q6HP PRN; Protocol PRN Reason: Per Pain Protocol/Fever > 101 Last Admin: 04/20/21 20:10 Dose: 650 mg Documented by: Albuterol/Ipratropium (Ipratropium/Albuterol 3 Ml Ampul.Neb) 3 ml NEB Q4HP PRN PRN Reason: Shortness Of Breath Benzonatate (Benzonatate 100 Mg Capsule) 200 mg PO TIDP PRN PRN Reason: Cough Last Admin: 04/20/21 20:09 Dose: 200 mg Documented by: Dexamethasone (Dexamethasone 4 Mg Tablet) 6 mg PO DAILY [facility] Last Admin: 04/20/21 08:59 Dose: 6 mg Documented by: Enoxaparin Sodium (Enoxaparin 40 Mg/0.4 Ml Syringe) 40 mg SQ BID [facility] Last Admin: 04/20/21 20:09 Dose: 40 mg Documented by: Guaifenesin/Codeine Phosphate (Guaifenesin/Codeine 10 Ml Udc) 10 ml PO Q4HP PRN PRN Reason: Cough Last Admin: 04/20/21 00:30 Dose: 10 ml Documented by: Potassium Chloride 40 meq/ (Dextrose) 520 mls @ 130 mls/hr IV UD PRN PRN Reason: Potassium < 3 Magnesium Sulfate (Magnesium Sulfate) 2 gm in 50 mls @ 50 mls/hr IV UD PRN PRN Reason: Magnesium </= 1.6 Ceftriaxone Sodium 2 gm/ (Dextrose) 50 mls @ 100 mls/hr IV DAILY@1100 [facility]; Protocol Last Infusion: 04/20/21 12:00 Dose: Infused Documented by: Loperamide HCl (Loperamide 2 Mg Capsule) 2 mg PO PRN PRN PRN Reason: Diarrhea Last Admin: 04/20/21 20:09 Dose: 2 mg Documented by: Lorazepam (Lorazepam 2 Mg/Ml Vial) 0.5 mg IV Q4-6HP PRN PRN Reason: ANXIETY/SEDATION Last Admin: 04/21/21 04:32 Dose: 0.5 mg Documented by: Melatonin (Melatonin 3 Mg Tablet) 3 mg PO HS [facility] Last Admin: 04/20/21 20:09 Dose: 3 mg Documented by: Metoclopramide HCl (Metoclopramide 10 Mg/2 Ml Vial) 10 mg IV Q6HP PRN PRN Reason: Nausea And Vomiting Ondansetron HCl (Ondansetron 4 Mg/2 Ml Vial) 4 mg IV Q4HP PRN PRN Reason: Nausea And Vomiting Last Admin: 04/20/21 17:31 Dose: 4 mg Documented by: Polyethylene Glycol (Polyethylene Glycol 3350 17 Gm Packet) 17 gm PO DAILYP PRN PRN Reason: Constipation Potassium Chloride (Potassium Chloride 20 Meq Tablet) 40 meq PO UD PRN PRN Reason: Potssium is 3-3.5 Potassium Chloride (Potassium Chloride 20 Meq Tablet) 40 meq PO UD PRN PRN Reason: Potassium < 3 Sodium Chloride (0.9 % Sodium Chloride 10 Ml Syringe) 10 ml IV Q8 [facility] Last Admin: 04/21/21 04:33 Dose: 10 ml Documented by: Zinc Sulfate (Zinc Sulfate 50 Mg Capsule) 50 mg PO DAILY [facility] Last Admin: 04/20/21 09:00 Dose: 50 mg Documented by: A/P Assessment and plan (1) Pneumonia due to COVID-19 virus: Status: Acute (2) Depression: Status: Acute (3) Acute respiratory failure with hypoxia: Status: Acute Narrative A/P Narrative: Assessment and Plans: 1. CoVID pneumonia with acute respiratory failure with hypoxia: Seen in patients PCU Isolation precautions: Airborne and contact Inflammatory markers Sputum culture CBC with auto differential in the morning to trend WBC Remdesivir for 10 days Dexamethasone Lovenox Rocephin DuoNeb nebulizer as needed wheezing Tessalon as needed cough Tylenol as needed fever Ativan as needed anxiety 2. Depression with Anxiety: Ativan as needed anxiety GI prophylaxis: Not currently indicated DVT prophylaxis: Lovenox CODE STATUS: Full code Prognosis: Guarded Dispositions: Inpatient PCU Time Spent With Patient Time: Total time spent is greater than 50% in coordination of care (as documented) at patient's floor/unit and/or counseling patient: Total time spent with greater than 50% in coordination of care (as documented) at patient's floor/unit and/or counseling patient:: Greater than 35 minutes QUALITY VTE Deep Vein Thrombosis/Pulmonary Embolism Present on Admission: No
[2021-04-21] MEDS: cefTRIAXone 2 GM in DEXTROSE 5% IN WATER 50 ML IV SCH (11:34)
[2021-04-21] MEDS ORDERED: ALPRAZolam 0.25 MG TABLET PO PRN (12:35)
[2021-04-21] MEDS: LOPERAMIDE 2 MG CAPSULE PO PRN (18:38)
[2021-04-21] MEDS: MELATONIN 3 MG TABLET PO SCH (21:52)
[2021-04-22] MEDS: 0.9 % SODIUM CHLORIDE 10 ML SYRINGE IV SCH ×3 (05:33→21:44)
[2021-04-22] MEDS: LORazepam 2 MG/ML VIAL IV PRN ×4 (06:53→21:43)
[2021-04-22 07:49] LABS: Basophils # (Auto) 0.01 K/mcL (0.00-0.30); Basophils % (Auto) 0.2 % (0.0-2.0); Eosinophils # (Auto) 0 K/mcL (0.00-0.70); Eosinophils % (Auto) 0 % (0.0-7.0); Hematocrit 36.8 % (34.1-44.9); Hemoglobin 11.5 g/dL (11.2-15.7); Lymphocytes # (Auto) 1.11 K/mcL (1.50-4.80); Lymphocytes % (Auto) 17.1 % (15.5-49.0); Mean Cell Volume 86.4 fL (80.0-100.0); Mean Corpuscular HGB Conc 31.3 g/dL (31.0-36.0); Mean Platelet Volume 10.2 fL (7.4-10.4); Monocytes # (Auto) 0.48 K/mcL (0.10-0.90); Monocytes % (Auto) 7.4 % (1.0-12.0); Neutrophils % (Auto) 75.3 % (38.0-78.0); Platelet Count 359 K/mcL (140-440); RBC 4.26 M/mcL (3.59-5.38); Red Cell Distribution Width 14.9 % (11.5-14.5); WBC 6.5 K/mcL (4.5-11.0)
[2021-04-22] MEDS: DEXAMETHASONE 4 MG TABLET PO SCH (08:04)
[2021-04-22] MEDS: ONDANSETRON 4 MG/2 ML VIAL IV PRN ×3 (08:04→19:40)
[2021-04-22] MEDS: ENOXAPARIN 40 MG/0.4 ML SYRINGE SQ SCH ×2 (08:04→19:09)
[2021-04-22] MEDS: ZINC SULFATE 50 MG CAPSULE PO SCH (08:04)
[2021-04-22] MEDS: LOPERAMIDE 2 MG CAPSULE PO PRN ×2 (08:10→19:40)
[2021-04-22 08:21] LABS: ALT/SGPT 14 U/L (<40); AST/SGOT 16 U/L (<32); Albumin 3.3 gm/dL (3.2-5.2); Albumin/Globulin Ratio 1.3 (1.0-2.3); Alkaline Phosphatase 72 U/L (39-117); Bilirubin,Total 0.3 mg/dL (0.1-1.0); Blood Urea Nitrogen 18 mg/dL (6-20); Calcium 8.9 mg/dL (8.6-10.4); Carbon Dioxide 23 mmol/L (22-30); Chloride 104 mmol/L (96-108); Globulin 2.5 gm/dL (2.2-3.7); Glomerular Filtration Rate 107; Glucose 98 mg/dL (70-105)
--- NOTE | 2021-04-22 08:50 | XRay Report ---
HISTORY: COVID pneumonia, short of breath FINDINGS: There is a mild generalized alveolar infiltrate in the right lung with subtle involvement in left lower lobe. There are a few bands of discoid atelectasis in the periphery of the left lung. The pneumonia has improved since prior exam done on 04/21/21. No pleural effusion is present. The heart size is normal. IMPRESSION: Continued gradual improvement of the bilateral pneumonia Interpreted and Authenticated by: Nathan Ibarra 04/22/21
[2021-04-22] MEDS ORDERED: REMDESIVIR 100 MG in 0.9 % SODIUM CHLORIDE 250 ML IV SCH (09:00)
--- NOTE | 2021-04-22 09:29 | Internal Med Progress Note ---
SUBJECTIVE Subjective Patient information: Note initiated : 04/22/21 at 9:27 am Service Date, if different from initiated Date: [] Patient: Julieth Wyatt a 56 y/o F admitted on 04/17/21 for shortness of breath. Chief Complaint: [CoVID pneumonia] Interval history: History of present illness: Ms. Wyatt is a 56 year old F Presents ED with increased cough shortness of breath. She was diagnosed with Covid a week and half ago. Over the last few days patient's had increased shortness of breath and coughing. Cough is mostly dry. When she first arrived she was satting low 80s on room air. CTA showed no PE but did show large patchy alveolar infiltrates bilateral lobes. Chemistry shows acute kidney injury. She is currently on oxygen mask at 10-12 L. She reports headache fever chills nausea vomiting diarrhea. Patient has not been vaccinated but was in the process of setting up an appointment to get the vaccine. 04/18 Patient continues to have cough mostly dry. Feels her shortness of breath is worse. Is on Vapotherm at 50 to 60 L/min with FiO2 92-100%. Instructed on proning today. Actemra yesterday. Reactant improved today. CRP improved today. Procalcitonin improving today. Does still have some diarrhea when she coughs. 04/19 Patient with cough that is improved. She says her shortness of breath waxes and wanes but overall she feels better than yesterday. She is down to 60-65% FiO2. 04/20 Patient on 50 L/min 60% FiO2. She says she is breathing little bit better. Does have cough. 04/21: Afebrile. Been partial prone. Oxygen requirement 40L/min, FiO2 40%. c/o general body weakness. c/o SOB. c/o nonproductive cough. Denies fever or chills. Denies chest pain or tightness. c/o anxiety. 04/22: Aebrile overnight. Tolerating room air for a few hours this morning. Improving SOB. c/o general body weakness. Denies cough or sputum production. Denies wheezing. Denies chest pain. Denies fever chills or sweating. Denies anxiety. Constitutional Vitals: Vital Signs Temp Pulse Resp BP Pulse Ox 36.9 C 64 17 143/84 93 04/22/21 04:01 04/22/21 06:01 04/22/21 06:01 04/22/21 06:01 04/22/21 07:45 Period Temp Pulse Resp BP Sys/Thao Pulse Ox Last 24 Hr 36.3 C-37.1 C 61-84 12-18 102-143/68-93 93-99 Intake and Output 04/21/21 04/22/21 04/22/21 21:59 05:59 13:59 Intake Total 690 Output Total 201 500 100 Balance -201 190 -100 Weight 83.915 kg Intake & Output: Intake & Output 04/21/21 04/22/21 04/22/21 21:59 05:59 13:59 Intake Total 690 Output Total 201 500 100 Balance -201 190 -100 Weight 83.915 kg Intake: Nourishment/Supplement quantity 240 (ml) Oral 450 Output: Void Amount 175 Urine/Stool Mix 201 325 100 Other: Meal Nourishment/Supplement Feeding Ability Assist with Tray Set Up Nourishment/Supplement name ensure Urine Appearance Clear Urine Color Bright Yellow Urine Odor Normal Stool Size Small Stool Color Brown Stool Consistency Liquid # Bowel Movements 1 General appearance: cooperative and no acute distress Head Head exam: Present atraumatic and normocephalic Eye Eye exam: Present EOMI and PERRL ENT ENT exam: Present mucous membranes moist, normal exam and normal external ear exam Neck Neck exam: Present normal inspection; Absent lymphadenopathy, tenderness and thy romegaly Respiratory Respiratory exam: Absent accessory muscle use, respiratory distress and wheezes Cardiovascular Cardiovascular exam: Present normal rate and rhythm; Absent JVD GI/Abdominal GI/Abdominal exam: Present normal bowel sounds and soft; Absent organomegaly and tenderness Extremities Exam Extremities exam: Present full ROM, normal capillary refill and normal inspection; Absent tenderness Neurological Exam Neurological exam: Present alert, CN II-XII intact and oriented X3; Absent motor sensory deficit Psychiatric Psychiatric exam: Present normal affect and normal mood; Absent anxious and depressed Skin Skin exam: Present dry and intact OBJ DATA Labs CBC & Chem 7: 04/22/21 05:38 04/22/21 05:38 Labs: Abnormal Lab Results 04/22/21 04/22/21 04/21/21 05:38 05:38 05:08 RDW 14.9 H 15.3 H Lymph # (Auto) 1.11 L 1.23 L Carbon Dioxide BUN Creatinine 0.5 L Glucose GGT Lactate Dehydrogenase Total Protein 5.8 L Albumin Triglycerides 04/20/21 07:35 RDW Lymph # (Auto) Carbon Dioxide 20 L BUN 21 H Creatinine Glucose 109 H GGT 160 H Lactate Dehydrogenase 349 H Total Protein Albumin 3.1 L Triglycerides 191 H Meds: Medications Acetaminophen (Acetaminophen 325 Mg Tablet) 650 mg PO Q6HP PRN; Protocol PRN Reason: Per Pain Protocol/Fever > 101 Last Admin: 04/20/21 20:10 Dose: 650 mg Documented by: Albuterol/Ipratropium (Ipratropium/Albuterol 3 Ml Ampul.Neb) 3 ml NEB Q4HP PRN PRN Reason: Shortness Of Breath Alprazolam (Alprazolam 0.25 Mg Tablet) 0.25 mg PO BIDP PRN PRN Reason: Anxiety Last Admin: 04/21/21 13:00 Dose: 0.25 mg Documented by: Benzonatate (Benzonatate 100 Mg Capsule) 200 mg PO TIDP PRN PRN Reason: Cough Last Admin: 04/20/21 20:09 Dose: 200 mg Documented by: Dexamethasone (Dexamethasone 4 Mg Tablet) 6 mg PO DAILY [facility] Last Admin: 04/22/21 08:04 Dose: 6 mg Documented by: Enoxaparin Sodium (Enoxaparin 40 Mg/0.4 Ml Syringe) 40 mg SQ BID [facility] Last Admin: 04/22/21 08:04 Dose: 40 mg Documented by: Guaifenesin/Codeine Phosphate (Guaifenesin/Codeine 10 Ml Udc) 10 ml PO Q4HP PRN PRN Reason: Cough Last Admin: 04/20/21 00:30 Dose: 10 ml Documented by: Potassium Chloride 40 meq/ (Dextrose) 520 mls @ 130 mls/hr IV UD PRN PRN Reason: Potassium < 3 Magnesium Sulfate (Magnesium Sulfate) 2 gm in 50 mls @ 50 mls/hr IV UD PRN PRN Reason: Magnesium </= 1.6 Ceftriaxone Sodium 2 gm/ (Dextrose) 50 mls @ 100 mls/hr IV DAILY@1100 [facility]; Protocol Last Infusion: 04/21/21 12:33 Dose: Infused Documented by: REMDESIVIR 100 mg/ Sodium (Chloride) 250 mls @ 500 mls/hr IV Q24H [facility] Stop: 04/26/21 09:29 Loperamide HCl (Loperamide 2 Mg Capsule) 2 mg PO PRN PRN PRN Reason: Diarrhea Last Admin: 04/22/21 08:10 Dose: 2 mg Documented by: Lorazepam (Lorazepam 2 Mg/Ml Vial) 0.5 mg IV Q4-6HP PRN PRN Reason: ANXIETY/SEDATION Last Admin: 04/22/21 06:53 Dose: 0.5 mg Documented by: Melatonin (Melatonin 3 Mg Tablet) 3 mg PO HS [facility] Last Admin: 04/21/21 21:52 Dose: 3 mg Documented by: Metoclopramide HCl (Metoclopramide 10 Mg/2 Ml Vial) 10 mg IV Q6HP PRN PRN Reason: Nausea And Vomiting Ondansetron HCl (Ondansetron 4 Mg/2 Ml Vial) 4 mg IV Q4HP PRN PRN Reason: Nausea And Vomiting Last Admin: 04/22/21 08:04 Dose: 4 mg Documented by: Polyethylene Glycol (Polyethylene Glycol 3350 17 Gm Packet) 17 gm PO DAILYP PRN PRN Reason: Constipation Potassium Chloride (Potassium Chloride 20 Meq Tablet) 40 meq PO UD PRN PRN Reason: Potssium is 3-3.5 Potassium Chloride (Potassium Chloride 20 Meq Tablet) 40 meq PO UD PRN PRN Reason: Potassium < 3 Sodium Chloride (0.9 % Sodium Chloride 10 Ml Syringe) 10 ml IV Q8 [facility] Last Admin: 04/22/21 05:33 Dose: 10 ml Documented by: Zinc Sulfate (Zinc Sulfate 50 Mg Capsule) 50 mg PO DAILY [facility] Last Admin: 04/22/21 08:04 Dose: 50 mg Documented by: A/P Assessment and plan (1) Pneumonia due to COVID-19 virus: Status: Acute (2) Depression: Status: Acute (3) Acute respiratory failure with hypoxia: Status: Acute Narrative A/P Narrative: Assessment and Plans: 1. CoVID pneumonia with acute respiratory failure with hypoxia: Transfer to inpatient med surg telemetry Currently tolerating room air Isolation precautions: Airborne and contact Inflammatory markers Sputum culture, no growth to date CBC with auto differential in the morning to trend WBC Remdesivir for 10 days Dexamethasone Lovenox Rocephin DuoNeb nebulizer as needed wheezing Tessalon as needed cough Tylenol as needed fever Ativan as needed anxiety 2. Depression with Anxiety: Ativan as needed anxiety Xanax as needed for anxiety GI prophylaxis: Not currently indicated DVT prophylaxis: Lovenox CODE STATUS: Full code Prognosis: Stable Dispositions: Transfer to inpatient med surg telemetry Time Spent With Patient Time: Total time spent is greater than 50% in coordination of care (as documented) at patient's floor/unit and/or counseling patient: QUALITY VTE Deep Vein Thrombosis/Pulmonary Embolism Present on Admission: No
[2021-04-22] MEDS: cefTRIAXone 2 GM in DEXTROSE 5% IN WATER 50 ML IV SCH ×2 (10:38→10:41)
[2021-04-22] MEDS ORDERED: POLYETHYLENE GLYCOL 3350 17 GM PACKET PO PRN (10:39)
[2021-04-22] MEDS ORDERED: POTASSIUM CHLORIDE 20 MEQ TABLET PO PRN ×2 (10:39)
[2021-04-22] MEDS ORDERED: MAGNESIUM SULFATE 2 GM/50 ML BAG IV PRN (10:39)
[2021-04-22] MEDS ORDERED: METOCLOPRAMIDE 10 MG/2 ML VIAL IV PRN (10:39)
[2021-04-22] MEDS ORDERED: guaiFENesin/CODEINE 10 ML UDC PO PRN (10:39)
[2021-04-22] MEDS ORDERED: BENZONATATE 100 MG CAPSULE PO PRN (10:39)
[2021-04-22] MEDS ORDERED: IPRATROPIUM/ALBUTEROL 3 ML AMPUL.NEB NEB PRN (10:39)
[2021-04-22] MEDS ORDERED: POTASSIUM CHLORIDE 40 MEQ in DEXTROSE 5% IN WATER 500 ML IV PRN (10:39)
[2021-04-22] MEDS ORDERED: ACETAMINOPHEN 325 MG TABLET PO PRN (10:39)
[2021-04-22] MEDS ORDERED: ALPRAZolam 0.25 MG TABLET PO PRN (10:39)
[2021-04-22] MEDS ORDERED: MELATONIN 3 MG TABLET PO SCH (21:00)
[2021-04-23] MEDS: LOPERAMIDE 2 MG CAPSULE PO PRN (04:31)
[2021-04-23] MEDS: 0.9 % SODIUM CHLORIDE 10 ML SYRINGE IV SCH ×2 (04:31→14:52)
[2021-04-23] MEDS: LORazepam 2 MG/ML VIAL IV PRN ×2 (04:31→09:05)
[2021-04-23 07:41] LABS: Basophils # (Auto) 0.01 K/mcL (0.00-0.30); Basophils % (Auto) 0.2 % (0.0-2.0); Eosinophils # (Auto) 0 K/mcL (0.00-0.70); Eosinophils % (Auto) 0 % (0.0-7.0); Hemoglobin 11.2 g/dL (11.2-15.7); Lymphocytes % (Auto) 20.7 % (15.5-49.0); Mean Cell Volume 86.6 fL (80.0-100.0); Mean Platelet Volume 10.3 fL (7.4-10.4); Monocytes # (Auto) 0.43 K/mcL (0.10-0.90); Monocytes % (Auto) 6.8 % (1.0-12.0); Neutrophils % (Auto) 72.3 % (38.0-78.0); Platelet Count 306 K/mcL (140-440); RBC 4.04 M/mcL (3.59-5.38); WBC 6.3 K/mcL (4.5-11.0)
[2021-04-23 08:10] LABS: ALT/SGPT 15 U/L (<40); AST/SGOT 13 U/L (<32); Albumin 3.2 gm/dL (3.2-5.2); Albumin/Globulin Ratio 1.3 (1.0-2.3); Alkaline Phosphatase 65 U/L (39-117); Bilirubin,Total 0.2 mg/dL (0.1-1.0); Blood Urea Nitrogen 18 mg/dL (6-20); Calcium 8.5 mg/dL (8.6-10.4); Carbon Dioxide 23 mmol/L (22-30); Chloride 104 mmol/L (96-108); Globulin 2.4 gm/dL (2.2-3.7); Glomerular Filtration Rate 101; Glucose 95 mg/dL (70-105)
[2021-04-23] MEDS: ENOXAPARIN 40 MG/0.4 ML SYRINGE SQ SCH (08:16)
[2021-04-23] MEDS ORDERED: ZINC SULFATE 50 MG CAPSULE PO SCH (09:00)
[2021-04-23] MEDS ORDERED: DEXAMETHASONE 4 MG TABLET PO SCH (09:00)
[2021-04-23] MEDS ORDERED: REMDESIVIR 100 MG in 0.9 % SODIUM CHLORIDE 250 ML IV SCH (09:00)
--- NOTE | 2021-04-23 09:28 | XRay Report ---
HISTORY: COVID pneumonia FINDINGS: There are alveolar infiltrates in both lungs. This has become worse in the periphery of the lower two thirds of the left lung compared with prior exams on 04/22 and 04/21/2021. There is mild residual pneumonia centrally and inferiorly in the right lung which remain stable. There may be a tiny left-side pleural effusion. The heart size is normal. No adenopathy is detected. IMPRESSION: Worsening pneumonia in the left lung and no change on the right Interpreted and Authenticated by: Nathan Ibarra 04/23/21
[2021-04-23] MEDS ORDERED: CALCIUM CARBONATE 500 MG TAB.CHEW CHEWED ONE (10:30)
[2021-04-23] MEDS: cefTRIAXone 2 GM in DEXTROSE 5% IN WATER 50 ML IV SCH (10:48)
--- NOTE | 2021-04-23 11:02 | Discharge Summary ---
Discharge Provider Provider Patient information: Note initiated : 04/23/21 at 11:00 am Service Date, if different from initiated Date: [] Patient: Julieth Wyatt 56 y/o F admitted on 04/17/21 for shortness of breath. Chief Complaint: [CoVID pneumonia] Date of admission: 04/17/21 11:56 Discharge date: 04/23/21 Primary care physician: Sameer Benitez MD Consults: 04/17/21 Consult to Physician [CONS] Stat Comment: Consulting Provider: De Webb Reason For Exam: Physician to Consult Discharge Meds Discharge Medications Home Medications hydrocodone 10 mg-acetaminophen 325 mg tablet 1 tab PO Q6H PRN #25 tab 03/24/21 [Rx Confirmed 04/17/21 Last Taken Unknown] ondansetron 4 mg PO Q6H PRN #12 tab 04/16/21 [Rx Last Taken Unknown] benzonatate 200 mg PO TIDP PRN #20 cap 04/23/21 [Rx Last Taken Unknown] calcium carbonate [Tums] 200 mg PO TID #10 tab 04/23/21 [Rx Last Taken Unknown] COURSE Hospital Course Hospital course: Presents ED with increased cough shortness of breath. She was diagnosed with Covid a week and half ago. Over the last few days patient's had increased shortness of breath and coughing. Cough is mostly dry. When she first arrived she was satting low 80s on room air. CTA showed no PE but did show large patchy alveolar infiltrates bilateral lobes. Chemistry shows acute kidney injury. She is currently on oxygen mask at 10-12 L. She reports headache fever chills nausea vomiting diarrhea. Patient has not been vaccinated but was in the process of setting up an appointment to get the vaccine. 04/18 Patient continues to have cough mostly dry. Feels her shortness of breath is worse. Is on Vapotherm at 50 to 60 L/min with FiO2 92-100%. Instructed on proning today. Actemra yesterday. Reactant improved today. CRP improved today. Procalcitonin improving today. Does still have some diarrhea when she coughs. 04/19 Patient with cough that is improved. She says her shortness of breath waxes and wanes but overall she feels better than yesterday. She is down to 60-65% FiO2. 04/20 Patient on 50 L/min 60% FiO2. She says she is breathing little bit better. Does have cough. 04/21: Afebrile. Been partial prone. Oxygen requirement 40L/min, FiO2 40%. c/o general body weakness. c/o SOB. c/o nonproductive cough. Denies fever or chills. Denies chest pain or tightness. c/o anxiety. 04/22: Aebrile overnight. Tolerating room air for a few hours this morning. Improving SOB. c/o general body weakness. Denies cough or sputum production. Denies wheezing. Denies chest pain. Denies fever chills or sweating. Denies anxiety. 04/23: Reached clinical stability. Tolerating room air. Afebrile more than 24 hours. Finished 7 days course of Remdesivir and Dexamethasone. Decision made to d ischarge patient home with Rx given, 2 week PCP appointment made, and all questions were answered prior to patient being physically discharged. Discharge diagnosis: CoVID pneumonia Time Spent with Patient Time attestation: Total time spent providing and/or coordinating discharge services: Presents ED with increased cough shortness of breath. She was diagnosed with Covid a week and half ago. Over the last few days patient's had increased shortness of breath and coughing. Cough is mostly dry. When she first arrived she was satting low 80s on room air. CTA showed no PE but did show large patchy alveolar infiltrates bilateral lobes. Chemistry shows acute kidney injury. She is currently on oxygen mask at 10-12 L. She reports headache fever chills nausea vomiting diarrhea. Patient has not been vaccinated but was in the process of setting up an appointment to get the vaccine. 04/18 Patient continues to have cough mostly dry. Feels her shortness of breath is worse. Is on Vapotherm at 50 to 60 L/min with FiO2 92-100%. Instructed on proning today. Actemra yesterday. Reactant improved today. CRP improved today. Procalcitonin improving today. Does still have some diarrhea when she coughs. 04/19 Patient with cough that is improved. She says her shortness of breath waxes and wanes but overall she feels better than yesterday. She is down to 60-65% FiO2. 04/20 Patient on 50 L/min 60% FiO2. She says she is breathing little bit better. Does have cough. 04/21: Afebrile. Been partial prone. Oxygen requirement 40L/min, FiO2 40%. c/o general body weakness. c/o SOB. c/o nonproductive cough. Denies fever or chills. Denies chest pain or tightness. c/o anxiety. 04/22: Aebrile overnight. Tolerating room air for a few hours this morning. Improving SOB. c/o general body weakness. Denies cough or sputum production. Denies wheezing. Denies chest pain. Denies fever chills or sweating. Denies anxiety. 04/23: Reached clinical stability. Tolerating room air. Afebrile more than 24 hours. Finished 7 days course of Remdesivir and Dexamethasone. Decision made to discharge patient home with Rx given, 2 week PCP appointment made, and all questions were answered prior to patient being physically discharged. EXAM Constitutional Vitals: Temp Pulse Resp BP Pulse Ox 36.3 C 73 18 112/70 93 04/23/21 08:00 04/23/21 08:00 04/23/21 08:00 04/23/21 08:00 04/23/21 08:00 General appearance: cooperative and no acute distress Head Head exam: Present atraumatic and normocephalic Eye Eye exam: Present EOMI and PERRL ENT ENT exam: Present mucous membranes moist, normal exam and normal external ear exam Neck Neck exam: Present normal inspection; Absent lymphadenopathy, tenderness and thyromegaly Respiratory Respiratory exam: Absent accessory muscle use, respiratory distress and wheezes Cardiovascular Cardiovascular exam: Present normal rate and rhythm; Absent JVD GI/Abdominal GI/Abdominal exam: Present normal bowel sounds and soft; Absent organomegaly and tenderness Extremities Exam Extremities exam: Present full ROM, normal capillary refill and normal inspection; Absent tenderness Neurological Exam Neurological exam: Present alert, CN II-XII intact and oriented X3; Absent motor sensory deficit Psychiatric Psychiatric exam: Present normal affect and normal mood; Absent anxious and depressed Skin Skin exam: Present dry and intact Discharge Data Data Completed and Pending Labs on day of discharge: Labs from last 24 hours 04/23/21 04/23/21 05:38 05:38 WBC 6.3 RBC 4.04 Hgb 11.2 Hct 35.0 MCV 86.6 MCH 27.7 MCHC 32.0 RDW 15.0 H Plt Count 306 MPV 10.3 Neut % (Auto) 72.3 Lymph % (Auto) 20.7 Hardin % (Auto) 6.8 Eos % (Auto) 0 Baso % (Auto) 0.2 Lymph # (Auto) 1.30 L Hardin # (Auto) 0.43 Eos # (Auto) 0 Baso # (Auto) 0.01 Absolute Neutrophils 4.55 Sodium 138 Potassium 3.4 Chloride 104 Carbon Dioxide 23 Anion Gap 11.0 BUN 18 Creatinine 0.6 GFR Calculation 101 Glucose 95 Calcium 8.5 L Total Bilirubin 0.2 AST 13 ALT 15 Alkaline Phosphatase 65 Total Protein 5.6 L Albumin 3.2 Globulin 2.4 Albumin/Globulin Ratio 1.3 Discharge Plan Patient/Caregiver Discharge Instructions Activity: increase activity as tolerated Diet: Regular Diet Prescriptions: New ondansetron 4 mg tablet,disintegrating 4 mg PO Q6H PRN (Reason: nausea and vomiting) Qty: 12 RF: 0 benzonatate 100 mg Capsule 200 mg PO TIDP PRN (Reason: Cough) Qty: 20 RF: 0 calcium carbonate [Tums] 200 mg calcium (500 mg) tablet,chewable 200 mg PO TID Qty: 10 RF: 0 Continued hydrocodone-acetaminophen 10-325 mg tablet 1 tab PO Q6H PRN (Reason: pain) Qty: 25 RF: 0 Follow Up Plan Follow up with: Sameer Benitez MD [Primary Care Provider] - Patient Disposition: Home, Self-Care Prognosis: Fair Rehab Potential: Good I certify that the patient requires SNF services: No Overall status at discharge: patient is back to baseline Discharge Orders: Discharge Order (Routine); Ordered 04/23/21 Ordered By: Mayank ARIZMENDI VTE Deep Vein Thrombosis/Pulmonary Embolism Present on Admission: No
[2021-04-23] MEDS ORDERED: LORazepam 2 MG/ML VIAL IV ONE (14:45)
== END 2021-04-23 15:53 | disposition home or self-care (01) | DRG 177 ==
LOC: ED 17:05 → ICU 04-17 11:56 → MEDSUR 04-22 13:09
PROVIDERS: ADMIT Internal Medicine; ATTEND Internal Medicine